=== PATIENT | female | born 1950 | race Caucasian/White ===

== ENCOUNTER 2016-12-25 05:25 | Day surgery (SDC) | payer MEDICARE, OTHER ==
[2016-12-24 15:32] LABS: HEMATOCRIT 38.9 % (36.0-48.0); HEMOGLOBIN 12.6 g/dL (12-16); MCH 29.9 pg (26.0-34.0); MCHC 32.4 g/dL (31.0-37.0); MCV 92.2 fL (80.0-100.0); MEAN PLATELET VOLUME 9.8 fL (7.4-10.4); RBC 4.22 10x6/uL (4.00-5.40); RDW 14.8 % (11.5-14.5); WBC 11.6 10x3/uL (4.8-10.8)
[2016-12-24 15:54] LABS: ANION GAP 12.8 mmol/L (8-16); CALCIUM 9.1 mg/dL (8.5-10.1); CARBON DIOXIDE 26.4 mmol/L (21.0-32.0); CREATININE - SERUM 1.3 mg/dL (0.6-1.3); POTASSIUM - SERUM 4.2 mmol/L (3.5-5.1)
[~2016-12-25] VITALS: Ht 154.9 cm; Wt 82.6 kg
[~2016-12-25 05:25] MED LIST: CALCIUM 600 +1 EAC3 PO; CELEXA40 MG PO; CENTRUM COMPLE1 EACH PO; ESTRACE1 MG PO; FUROSEMIDE40 MG PO; HYDROCODONE-APA1 TAB PO; IBUPROFEN200 MG PO; K-TAB10 MEQ PO; LEVOTHYROXINE50 MCG PO; NORMODYNE / TR200 MG PO; PEPCID20 MG PO; PRINIVIL20 MG PO; TUMERIC PO; VITAMIN B-121000 MCG PO; ZOCOR10 MG PO
[2016-12-25 08:39] VITALS: BP 130/80; Ht 154.9 cm; Wt 82.6 kg
[2016-12-25] MEDS ORDERED: MEPERIDINE HCL50 MG PO (13:06)
--- NOTE | 2016-12-25 13:18 | NUR ---
LEFT KNEE ARTHROSCOPY WITH PARTICAL MENISECTOMY AND REMOVAL OF FOREING BODY TIMES 2 =
--- NOTE | 2016-12-25 16:31 | NUR ---
1515 IV DC WITH CATHER TIP INTACT
--- NOTE | 2016-12-29 18:23 | OP ---
PATIENT NAME: TAMANNA CHENG MEDICAL RECORD: [id number] :50 LOCATION:D.[facility] ADMISSION DATE: SURGEON: NICK WAHL MD DATE OF OPERATION: 12/25/2016 PREOPERATIVE DIAGNOSES: 1. Lateral meniscus tear of the left knee. 2. Loose body of the left knee. POSTOPERATIVE DIAGNOSES: 1. Lateral meniscus tear of the left knee. 2. Loose body of the left knee. PROCEDURES: 1. Arthroscopic partial lateral meniscectomy of the left knee. 2. Arthroscopic removal of loose body times 2 of the left knee. SURGEON: Nick Wahl MD ANESTHESIA: General. INTRAOPERATIVE COMPLICATIONS: None. SUMMARY OF PATHOLOGIC FINDINGS: The patient had isolated patellofemoral compartment, grade IV chondromalacia with a bucket-handle tear of the lateral meniscus with unfortunately two loose bodies, free floating, in the lateral compartment. OPERATIVE SUMMARY IN DETAIL: After obtaining the appropriate preoperative orthopedic surgery consent as well as anesthetic consultation, evaluation and clearance, the patient was brought to the operating room and placed on the operating room table in supine position. After adequate general laryngeal mask was administered, tourniquet was placed about the proximal aspect of the left lower extremity. Left lower extremity was then prepped and draped in a routine sterile fashion. The leg was elevated and exsanguinated, tourniquet inflated to 350 mmHg. Routine inferolateral portal was established followed by superomedial portal. Diagnostic arthroscopy did show that the patient had loose bodies, each was photographed. Loose bodies were then taken out and sent for permanent specimen times 2. The medial compartment was relatively pristine. The lateral compartment; however, had a complex tear with a bucket-handle component. Buckle-handle component was taken down with a resector as well as a meniscotome and the posterior tear of the meniscus was debrided back to stable meniscal elements. 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 Having completed this, the knee was insufflated with 30 cc of 0.25% Marcaine with epinephrine and 40 mg of Depo-Medrol. Arthroscopy portals were closed in routine interrupted fashion using 4-0 Prolene. Sterile dressings were applied. The patient was awakened, taken to recovery room in stable condition. All final needle and sponge counts were correct. TRANSINT:[id number] Voice Confirmation ID: [id number] DOCUMENT ID: [id number] OPERATIVE REPORT [id number] TAMANNA CHENG MD, NICK RANGEL at 1823 CC: [id number] DICTATION DATE: 12/25/16 1259 MILL CONTROLLER: 12/25/16 1542 [facility] 12/25/16 [place] [id number] [place] [id number]
== END 2016-12-25 15:30 | disposition home or self-care (01) ==
LOC: D.OPS 05:25 → D.PAN 10:00 → D.OPS 11:00 → D.PAN 11:00 → D.OPS 12:15 → D.PAN 12:15 → D.OPS 15:30
PROVIDERS: Anesthesiology
DX: S83.252A Bucket-handle tear of lateral meniscus, current injury, left knee, initial encounter (principal); M25.511 Pain in right shoulder; S46.011A Strain of muscle(s) and tendon(s) of the rotator cuff of right shoulder, initial encounter; M19.111 Post-traumatic osteoarthritis, right shoulder; I10 Essential (primary) hypertension; K21.9 Gastro-esophageal reflux disease without esophagitis; E66.9 Obesity, unspecified; Z68.34 Body mass index [BMI] 34.0-34.9, adult; M22.42 Chondromalacia patellae, left knee

== ENCOUNTER → 2017-02-10 12:56 | Outpatient (CLI) | payer MEDICARE, OTHER ==
[2016-12-25 08:39] VITALS: BMI 34.4
[~2017-02-10 12:56] MED LIST changes: +MEPERIDINE HCL50 MG PO
[2017-02-10 13:51] LABS: C-REACTIVE PROTEIN < 0.2 mg/dL (0.0-0.9); COMPLEMENT C4 37.2 mg/dL (17.4-52.2)
[2017-02-10 14:40] LABS: ERYTHROCYTE SEDIMENTATION RATE 29 mm/hr (0-30)
[2017-02-11 10:18] LABS: ANA REFLEX - DIRECT Negative (Negative)
[2017-02-11 22:07] LABS: CYCLIC CITRULL PEPTIDE IGG/IGA 4 units (0-19)
== END | disposition home or self-care (01) ==
LOC: D.LAB 12:56
PROVIDERS: Orthopaedic Surgery
DX: M19.90 Unspecified osteoarthritis, unspecified site (principal); M25.50 Pain in unspecified joint

== ENCOUNTER → 2017-04-02 18:45 | Outpatient (CLI) | payer MEDICARE, OTHER ==
[2016-12-25 08:39] VITALS: BMI 34.4
[2017-04-02 19:44] LABS: ANION GAP 10.1 mmol/L (8-16); CALCIUM 9.6 mg/dL (8.5-10.1); CARBON DIOXIDE 31.9 mmol/L (21.0-32.0); CREATININE - SERUM 1.4 mg/dL (0.6-1.3); MAGNESIUM - SERUM 1.8 mg/dL (1.8-2.4)
== END | disposition home or self-care (01) ==
LOC: D.LABREF 18:45
PROVIDERS: Internal Medicine Cardiovascular Disease
DX: I10 Essential (primary) hypertension (principal)

== ENCOUNTER 2018-06-25 10:00 | Outpatient (CLI) | payer MEDICARE, OTHER ==
[2016-12-25 08:39] VITALS: BMI 34.4
== END 2018-06-25 11:45 | disposition left against medical advice (07) ==
LOC: D.MAMMO 10:00
DX: Z12.31 Encounter for screening mammogram for malignant neoplasm of breast (principal)

== ENCOUNTER → 2018-06-30 10:02 | Outpatient (CLI) | payer MEDICARE, OTHER ==
[2016-12-25 08:39] VITALS: BMI 34.4
--- NOTE | ~2018-06-30 | EC ---
PATIENT:TAMANNA CHENG DATE OF SERVICE: 06/30/18 SEX: F MEDICAL RECORD: [id number] DATE OF : 50 LOCATION:[facility] AGE OF PATIENT: 67 ADMISSION DATE: 06/30/18 REFERRING PHYSICIAN: INTERPRETING PHYSICIAN: REG OSMAN MD ECHOCARDIOGRAM REPORT ECHO CHARGES 4 ECHO COMPLETE Date: 06/30 CLINICAL DIAGNOSIS: TIA/HTN/CP ECHOCARDIOGRAPHIC MEASUREMENTS (adult normal given) AC root (d.<3.7cm) 3.1 cm LV Septum d (<1.2 cm> 1.6 cm Valve Excursion 1.8 cm LV Septum (systole) 2.1 cm Left Atria (s.<4.0cm> 3.7 cm LVPW d(<1.2cm) 1.3 cm RV (d.<2.3cm) 2.3 cm LVPW (sytole) 2.3 cm LV diastole(<5.6CM) 6.2 cm MV E-F(>70mm/sec) cm LV systole 3.8 cm LVOT Diameter 1.7 cm MV exc.(>10mm) cm Est.ejection fraction (50-75%) % DOPPLER: LVIT cm/sec A 100 cm/sec E 77.0 cm/sec LA cm/sec RVSP 41.4 mmHg LVOT 131 cm/sec AOP1/2T m/s Asc. Ao 183 cm/sec RVOT 62.0 cm/sec RA cm/sec PA 89.0 cm/sec AV Gradient Peak 13.3 mmHg AV Mean 6.0 mmHg AV Area 1.4 cm MV Gradient Peak 6.1 mmHg MV Mean 2.1 mmHg MV Area cm COMMENTS: Drive Worker: Elisa VOOE Event Sales Manager: 4 Dr. Osman TAPE# PACS Pericardial Effusion N DATE OF SERVICE: PROCEDURE: Transthoracic echocardiogram. FINDINGS: 1. Left ventricle shows mild left ventricular enlargement, but preserved LV systolic function with mild left ventricular hypertrophy. It is concentric in nature and evidence with inflow characteristics consistent with diastolic dysfunction. 2. The left atrium is normal size, shape, structure, and function. ECHOCARDIOGRAM REPORT [id number] TAMANNA CHENG 3. The mitral valve has moderate mitral regurgitation. 4. The aortic valve is normal. 5. The tricuspid valve has trace to mild tricuspid regurgitation. RVSP is mildly elevated at 40 mmHg. 6. The right ventricle is normal. 7. The right atrium is normal. 8. The pulmonic valve is grossly normal. CONCLUSION: The patient has evidence of mild hypertensive heart disease, otherwise normal echocardiogram. TRANSINT:[id number] Voice Confirmation ID: [id number] DOCUMENT ID: [id number] REG OSMAN MD at 1144 CC: [id number] DICTATION DATE: 07/01/18 1037 SCADA OPERATOR: 07/01/18 1054 DEP CLI 06/30/[address] [id number]
== END | disposition home or self-care (01) ==
LOC: D.ECHO 06-29 10:00
DX: G45.9 Transient cerebral ischemic attack, unspecified (principal); I10 Essential (primary) hypertension; R07.9 Chest pain, unspecified

== ENCOUNTER → 2018-07-05 18:23 | Outpatient (CLI) | payer MEDICARE, OTHER ==
[2016-12-25 08:39] VITALS: BMI 34.4
== END | disposition home or self-care (01) ==
LOC: D.LABREF 18:23
DX: E78.5 Hyperlipidemia, unspecified (principal)

== ENCOUNTER 2018-07-05 19:00 | Outpatient (CLI) | payer MEDICARE, OTHER ==
[2016-12-25 08:39] VITALS: BMI 34.4
[2018-07-05 17:45] LABS: CHOL - HDL RATIO 3.6 ratio (2.3-4.1); LDL-HDL RATIO 2.1 ratio (1.5-3.5)
== END 2018-07-05 23:59 | disposition home or self-care (01) ==
LOC: D.MAMMO 19:00
PROVIDERS: Family Medicine
DX: R92.8 Other abnormal and inconclusive findings on diagnostic imaging of breast (principal); E78.5 Hyperlipidemia, unspecified

== ENCOUNTER → 2018-11-26 16:26 | Outpatient (CLI) | payer MEDICARE, OTHER ==
[2016-12-25 08:39] VITALS: BMI 34.4
== END | disposition home or self-care (01) ==
LOC: D.MAMMO 11:00
DX: R92.8 Other abnormal and inconclusive findings on diagnostic imaging of breast (principal)

== ENCOUNTER 2019-12-01 09:00 | Outpatient (CLI) | payer OTHER ==
[2016-12-25 08:39] VITALS: BMI 34.4
== END 2019-12-01 10:00 | disposition home or self-care (01) ==
LOC: D.MAMMO 09:00
PROVIDERS: ATTEND Clinical Nurse Specialist Family Health
DX: Z12.31 Encounter for screening mammogram for malignant neoplasm of breast (principal)

== ENCOUNTER → 2020-08-03 14:09 | Outpatient (CLI) | payer OTHER ==
[2016-12-25 08:39] VITALS: BMI 34.4
== END | disposition home or self-care (01) ==
LOC: D.CT 14:09
PROVIDERS: ATTEND Orthopaedic Surgery
DX: R07.89 Other chest pain (principal)

== ENCOUNTER → 2021-05-27 18:59 | Outpatient (CLI) | payer OTHER ==
[2016-12-25 08:39] VITALS: BMI 34.4
== END | disposition home or self-care (01) ==
LOC: D.LABREF 18:59
PROVIDERS: ATTEND Orthopaedic Surgery
DX: M17.11 Unilateral primary osteoarthritis, right knee (principal); M17.12 Unilateral primary osteoarthritis, left knee